=== PATIENT | female | born 1990 | race Caucasian/White ===

== ENCOUNTER 2019-12-17 09:33 | Emergency (ER) | payer OTHER, SELFPAY ==
--- NOTE | ~2019-12-17 | XR_ITS ---
EXAMINATION: XR chest 1V portable DATE: 12/17/2019 10:46 INDICATION: Left shoulder pain. TECHNIQUE: A single frontal view of the chest was obtained. COMPARISON: None. FINDINGS: The chest demonstrates clear lungs without pneumonia, pleural effusion, or pneumothorax. Th e heart size is normal. IMPRESSION: 1. No acute cardiopulmonary disease. Reviewed, dictated and finalized at location A.
--- NOTE | ~2019-12-17 | XR_ITS ---
EXAMINATION: XR shoulder LT min 2V DATE: 12/17/2019 10:46 INDICATION: Left shoulder pain. TECHNIQUE: 3 views of left shoulder were obtained. COMPARISON: None. FINDINGS: Bone alignment is normal. No fracture. Joint spaces are well maintained. IMPRESSION: 1. Normal left shoulder. Reviewed, dictated and finalized at location A. IMPRESSION: 1. Normal left shoulder.
[2019-12-17 09:34] VITALS: BP 146/96; PULSE 109; RESP 18; TEMP 36.2; O2SAT 97
--- NOTE | 2019-12-17 10:09 | ED.UPPEXIN ---
HPI - Extremity Injury (Upper) General Chief Complaint: Extremity Injury, Upper Stated Complaint: left shoulder pain Time Seen by Provider: 12/17/19 09:57 Source: patient Mode of arrival: ambulatory Limitations: no limitations History of Present Illness HPI narrative: Patient is a 29-year-old female who presents complaining of left shoulder pain. She reports waking with left shoulder pain Tuesday morning. She reports being seen at [facility], x-rays completed were negative. She reports she was sent home on Zanaflex and told to take ibuprofen. She reports increased pain with intermittent tingling to left fingers. She reports increased pain with range of motion. Reports pain is 9/10. Patient has full range of motion to left arm. Denies chest pain or shortness of breath. She denies known injury. She does report she lifts frequently. MD complaint: injury to: left and shoulder Related Data Home Medications Medication Instructions Recorded Confirmed ibuprofen 200 mg PO Q6H PRN 12/17/19 tizanidine 2 mg PO BID PRN 12/17/19 Allergies Allergy/AdvReac Type Severity Reaction Status Date / Time No Known Allergies Allergy Unknown Verified 12/17/19 09:39 Review of Systems Review of Systems: Narrative: CONSTITUTIONAL: Denies fever, chills, or sweats. EYES: Denies visual changes, redness, or discharge. ENT: Denies rhinorrhea, congestion, sore throat, or otalgia. CARDIOVASCULAR: Denies chest pain, palpitations, or edema. RESPIRATORY: Denies cough or dyspnea. GASTROINTESTINAL: Denies abdominal pain, nausea, vomiting, or diarrhea. GENITOURINARY: Denies dysuria or hematuria. SKIN: Denies rash or itching. MUSCULOSKELETAL: Denies back pain, reports left shoulder pain NEUROLOGIC: Denies headache, numbness, dizziness, or weakness. PSYCHIATRIC: Denies anxiety or depression. [facility] Past Medical History Medical History Anxiety Bipolar disorder Surgical History Surgical History H/O: Family History Family History Other Anxiety Bipolar disorder High cholesterol Hypertension Social History Social History (Updated 12/17/19 @ 10:16 by ESTEPHANIE Cartagena Smoking status: Current some day smoker Tobacco type: cigarettes Alcohol intake: current Alcohol use details: occasional Substance use: never Living arrangements: with family Occupation/Education: occupation Gender identity (if verbalized by the patient): Female Exam Narrative: Exam Narrative: GENERAL: Well-appearing, well-nourished, and in no acute distress. HEAD: Normocephalic, atraumatic. EYES: No redness or drainage. Conjunctiva are normal. ENT: Mucous membranes pink and moist. NECK: AROM. Supple. No lymphadenopathy. CHEST: No respiratory distress. Clear to auscultation. HEART: Regular rate and rhythm. No murmur appreciated. Normal peripheral pulses. GI: Soft, nontender without rebound, or guarding. No distention. Bowel sounds normal in all quadrants. MUSCULOSKELETAL: No bony tenderness. EXTREMITIES: Normal range of motion. No edema. Left arm good capillary refill, peripheral pulses intact SKIN: Warm, dry, no rash. NEURO: No focal deficits. Alert and oriented x3. Gait steady. PSYCH: Normal affect. No signs of depression or anxiety. Course Vital Signs Vital signs: Vital Signs Temperature 36.2 C L 12/17/19 09:34 Pulse Rate 109 H 12/17/19 09:34 Respiratory Rate 18 12/17/19 09:34 Blood Pressure 146/96 H 12/17/19 09:34 Pulse Oximetry 97 12/17/19 09:34 Temperature 36.2 C L 12/17/19 09:34 Pulse Rate 109 H 12/17/19 09:34 Respiratory Rate 18 12/17/19 09:34 Blood Pressure 146/96 H 12/17/19 09:34 Pulse Oximetry 97 12/17/19 09:34 Reviewed. Patient has been instructed to follow-up with her PCP regarding her blood press
--- NOTE | 2019-12-17 10:20 | ECG_ITS ---
Measurements Intervals [facility] [place] Rate: 83 P: 50 CT: 156 QRS: 42 QRSD: 90 T: 38 QT: 356 QTc: 420 Interpretive Statements SINUS RHYTHM NORMAL ECG Electronically Signed On 12-17-2019 11:04:53 CDT by Sarthak Guerrero D.O.
[2019-12-17] MEDS: diazePAM (*CRX) 5 MG TABLET PO (10:28)
[2019-12-17] MEDS: KETOROLAC (*BKC) 60 MG/2 ML VIAL IM (10:28)
[2019-12-17 11:42] VITALS: BP 134/68; PULSE 75; RESP 16; O2SAT 100
== END 2019-12-17 11:43 | disposition home or self-care (01) ==
PROVIDERS: Emergency Provider Nurse Practitioner; PCP Family Medicine Sports Medicine
DX: S46.912A Strain of unspecified muscle, fascia and tendon at shoulder and upper arm level, left arm, initial encounter (principal); F17.210 Nicotine dependence, cigarettes, uncomplicated; X58.XXXA Exposure to other specified factors, initial encounter; R03.0 Elevated blood-pressure reading, without diagnosis of hypertension
CPT/HCPCS: 71045; 73030; 93005; 96372; 99284; A9270; J1885

== ENCOUNTER 2020-01-23 15:00 | Outpatient (RCR) | payer OTHER, SELFPAY ==
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
--- NOTE | 2020-02-01 09:56 | PCPTNOTE ---
Patient called & cancelled scheduled appointment this date. Patient feels she is doing well on her own with the exercises and not having pain. Plan to talk with patient again in one week unless patient has issues prior to that.
--- NOTE | 2020-02-04 16:47 | PTOPEVAL ---
PHYSICAL THERAPY DISCHARGE SUMMARY Thank you for referring Nreeyda Hanks to [facility].? The patient has been seen for therapy 4 visits. The goals are met and patient continues exercises on own at home. Please review, sign, date and return this plan of care BRIDGET. I agree with and certify that the following plan of care is medically necessary. Referring Physician Date Attending Provider: Miguel Thomson MD *PT Outpatient Discharge Start: 01/14/20 12:38 Freq: Status: Active Protocol: Document 02/04/20 16:40 MLV (Rec: 02/04/20 16:47 MLV [email or web address]) Therapy Assessment Status Assessment Status Assessment Status Discharge Outpatient Past Medical History Reproductive History Hx Section Yes: x3 Pain Assessment Timing of Pain Assessment Timing of Pain Assessment Post-Treatment Self Report Self Report Pain Level 0 Pain Score Pain Score 0: Self Report General Exercise General Exercises Side Left Exercise Type Resistive,Stretching Exercise Description The patient is independent Query Text:Record Sets, Reps, with shoulder/scapular Resistance, and Position stretches and achieves full motion. The patient is independent with scapular/shoulder strengthening exercises and tolerates moderate resistance without increased symptoms. PT Clinical Summary Ms. Hanks has been seen for 4 visits in physical therapy for modalities and progressive exercises for her dx of left shoulder pain. The patient is completing her exercises at home and denies any trouble with exercises. The patient is able to continue therapy on her own at home with no current skilled PT needs. Goals are met and plan to D/C PT. The patient sees her MD in 2 days for re-assessment. PT Services Indicated No
== END 2020-02-05 14:57 | disposition home or self-care (01) ==
LOC: ANHPT 15:00
PROVIDERS: PCP Family Medicine Sports Medicine; Visit Provider Orthopaedic Surgery
DX: M25.512 Pain in left shoulder (principal)
CPT/HCPCS: 97014; 97110; 97161; G0283